=== PATIENT | female | born 1970 | race Two or more races ===

== ENCOUNTER 2019-03-31 12:41 | Emergency (ER) | payer MEDICAID ==
[~2019-03-31] VITALS: Ht 167.6 cm; Wt 61.2 kg
[~2019-03-31 12:41] MED LIST: AZIT250T8 PO; METH4PAK PO; TRAM50TA2 PO
[2019-03-31] MEDS ORDERED: SODIUM CHLORIDE 0.9% 500 ML IV ONE (12:49)
[2019-03-31] MEDS ORDERED: IOHEXOL 300 MG/ML 100ML BOTTLE IJ ONE (12:59)
[2019-03-31] MEDS ORDERED: ONDANSETRON HCL 4 MG/2 ML VIAL IV ONE (13:00)
[2019-03-31] MEDS ORDERED: HYDROmorphone HCL 2 MG/ML VL IV ONE (13:00)
[2019-03-31 13:57] LABS: Basophils # (auto) 0.1 uL; Basophils % (auto) 0.8 % (0.0-2.0); Eosinophils # (auto) 0.2 uL; Eosinophils % (auto) 1.8 % (0.0-7.0); Hematocrit 39.3 % (36.0-46.0); Hemoglobin 12.9 g/dL (12.2-16.2); Lymphocytes # (auto) 1.8 uL; Lymphocytes % (auto) 16.6 % (10.0-50.0); Mean Corpuscular Hemoglobin 28.9 pg (28.0-32.0); Mean Corpuscular Hgb Conc. 32.7 g/dL (32.0-36.0); Mean Corpuscular Volume 88.4 fL (80.0-100.0); Monocytes % (auto) 8.9 % (0.0-12.0); Neutrophils % (auto) 71.9 % (37.0-80.0); Platelet Count (auto) 397 10^3/uL (140-450); Red Blood Cells 4.44 10^6/uL (4.0-5.20); Red Cell Distribution Width 14.9 % (11.8-14.3); White Blood Cell 11.1 10^3/uL (4.4-10.8)
[2019-03-31 14:03] LABS: Albumin 3.2 g/dL (3.4-5.0); Anion Gap 5 (5-15); Blood Urea Nitrogen 12 mg/dL (7-18); Calcium 8.4 mg/dL (8.5-10.1); Carbon Dioxide 28 mmol/L (21-32); Chloride 105 mmol/L (98-107); Glucose 101 mg/dL (74-106); Magnesium 2.3 mg/dL (1.6-2.6); Potassium 3.8 mmol/L (3.5-5.1); Sodium 138 mmol/L (136-145)
[2019-03-31 14:10] LABS: Alanine Aminotransferase 26 U/L (13-56); Alkaline Phosphatase 62 U/L (45-117); Aspartate Aminotransferase 16 U/L (15-37); Bilirubin, Total 0.3 mg/dL (0.2-1.0); GFR African American 107 mL/min; GFR Non-African American 88 mL/min; Total Protein 6.8 g/dL (6.4-8.2)
[2019-03-31 14:55] LABS: Urine WBC None Seen /hpf (0 - 5)
[2019-03-31 15:41] LABS: Urine Bacteria NONE SEEN /hpf (None Seen); Urine Blood Negative /uL (Negative); Urine Mucus FEW (None Seen)
[2019-03-31 15:53] LABS: Urine Specific Gravity > 1.050 (1.001-1.035)
[2019-03-31 16:40] VITALS: BP 112/68
== END 2019-03-31 16:49 | disposition home or self-care (01) ==
LOC: ER 12:41 → EDBD 12:41 → ER 16:49
DX: M54.6 Pain in thoracic spine (principal); F17.210 Nicotine dependence, cigarettes, uncomplicated; Z79.899 Other long term (current) drug therapy; Z98.51 Tubal ligation status
CPT/HCPCS: 36415; 71045; 71260; 74177; 80053; 81001; 83735; 84484; 85025; 93005; 94761; 96374; 96375; 99284; J1170; J2405; J7040; Q9967